=== PATIENT | female | born 1995 | race Two or more races ===

== ENCOUNTER 2024-03-19 16:37 | Outpatient (CLI) | payer OTHER ==
--- NOTE | 2024-03-20 17:02 | Ultrasound Report ---
PROCEDURE: OB Anatomy Scan INDICATIONS: SUPERVISION OF NORMAL OUTSIDE/PRIOR DATING DATA: Last menstrual period (LMP): 10/16/2023. LMP-based estimated date of delivery (PHIL): 07/22/2024. First dating scan (date and location): 12/24/2023, [place]. Estimated date of delivery (PHIL) from first dating scan: 12/24/2023. The below data below was generated using the ultrasound PHIL of 08/01/2024 TECHNIQUE: Real-time scanning was performed of the fetus, with image documentation and biometric measurements. Endovaginal scanning: Not performed. COMPARISON: None. FINDINGS: General: A single living intrauterine gestation is present. Presentation: Vertex Placenta: Placental position is posterior, without previa. Amniotic fluid index: 12.9 cm, within normal limits for gestational age. heart rate: 147 beats per minute. Maternal cervical canal: 4.4 cm long; normal length is 2.5 cm or more. biometrics: Biparietal diameter: 5.09 cm, 21 weeks 3 days, 76.9% Head circumference: 19.27 cm, 21 weeks 4 days, 75.8% Abdominal circumference: 16.4 cm, 21 weeks 3 days, 68.2% Femur length: 3.6 cm, 21 weeks 3 days, 68.6% Estimated gestational age from initial scan: 20 weeks, 5 days Composite gestational age from present scan: 21 weeks, 1 day Estimated weight and percentile: 426.5 g, 84% Measurement variability in biometric dating: +/- 10 days from 12-20 weeks gestation, +/- 2 weeks from 20-30 weeks gestation, +/- 3 weeks at 30 weeks gestation or later. Anatomic survey: Neuro: Ventricles are normal at less than 10 mm. Cisterna magna is normal at 3-11 mm. Cerebellum i s normal in size and morphology. Nuchal skin fold: Normal at less than 6 mm between 14 and 20 weeks gestational age. Face: Nose and lips, facial profile are normal. Spine: No evidence for spina bifida. Heart: The 4 chambered heart and the outflow tracts were poorly characterized. Diaphragm: Diaphragm is intact. Stomach: Left-sided stomach is present. Kidneys: No hydronephrosis. Normal is less than 5 mm in 2nd trimester, less than 7 mm in 3rd trimester. Cord: 3 vessel cord has orthotopic insertion. Bladder: Normal in size. Extremities: All 4 extremities are visualized. IMPRESSION: 1. Single live intrauterine gestation with a composite gestational age of 21 weeks, 1 day which is co ncordant with dates by initial scan. 2. Four-chamber heart and outflow tracts not well characterized. Short interval follow-up recommended . Reviewed by: Tamera Jimenez MD on 03/20/2024 5:00 PM PDT Approved by: Tamera Jimenez MD on 03/20/2024 5:00 PM PDT Station ID: [id number]
== END 2024-03-19 16:38 | disposition home or self-care (01) ==
LOC: DI 16:37
PROVIDERS: ATTEND Nurse Practitioner Obstetrics & Gynecology
DX: Z34.02 Encounter for supervision of normal first pregnancy, second trimester (principal); Z36.89 Encounter for other specified antenatal screening

== ENCOUNTER 2024-04-19 15:18 | Outpatient (CLI) | payer OTHER ==
--- NOTE | 2024-04-19 17:00 | Ultrasound Report ---
PROCEDURE: OB Follow up INDICATIONS: SUPERVISION OF OUTSIDE/PRIOR DATING DATA: Last menstrual period (LMP): 10/16/2023. LMP-based estimated date of delivery (PHIL): 07/22/2024. First dating scan (date and location): 12/24/2023. Estimated date of delivery (PHIL) from first dating scan: 08/01/2024. The below data below was generated using the ultrasound PHIL of 08/01/2024 TECHNIQUE: Real-time scanning was performed of the fetus, with image documentation. Endovaginal scanning: Not performed. COMPARISON: 03/19/2024 FINDINGS: General: A single living intrauterine gestation is present. Presentation: Vertex Placenta: Placental position is posterior, without previa. Amniotic fluid index: 13 cm, within normal limits for gestational age. heart rate: 153 beats per minute. Maternal cervical canal: 4.3 cm long; normal length is 2.5 cm or more. Other: Four-chamber heart view and outflow tracts are normal. IMPRESSION: Single living intrauterine at 25 weeks 1 day, PHIL of 08/01/2024. Normal heart and outflow tracts. Reviewed by: Chacorta Lovelace MD on 04/19/2024 4:59 PM PDT Approved by: Chacorta Lovelace MD on 04/19/2024 4:59 PM PDT Station ID: [id number]
== END 2024-04-19 15:19 | disposition home or self-care (01) ==
LOC: DI 15:18
PROVIDERS: ATTEND Nurse Practitioner Obstetrics & Gynecology
DX: Z34.02 Encounter for supervision of normal first pregnancy, second trimester (principal); Z36.89 Encounter for other specified antenatal screening

== ENCOUNTER 2024-04-20 08:48 | Outpatient (CLI) | payer OTHER ==
[2024-04-20 09:16] LABS: HCT - HEMATOCRIT 37.1 % (37.0-47.0); HGB - HEMOGLOBIN 12.1 g/dL (12.0-16.0); MEAN CORPUSCULAR HEMOGLOBIN 30.8 pg (27.0-31.0); MEAN CORPUSCULAR HGB CONC 32.6 g/dL (32.0-36.0); MEAN CORPUSCULAR VOLUME 94.4 fL (81.0-99.0); MEAN PLATELET VOLUME 8.5 fL (7.9-10.8); RED BLOOD COUNT 3.93 10^6/uL (4.20-5.40); RED CELL DISTRIBUTION WIDTH 12.1 % (12.0-15.0); WHITE BLOOD COUNT 10.2 x10^3/uL (4.8-10.8)
[2024-04-20 09:29] LABS: GTT GLUCOSE,FASTING 82 mg/dL (74-109)
== END 2024-04-20 08:49 | disposition home or self-care (01) ==
LOC: LAB 08:48
PROVIDERS: ATTEND Nurse Practitioner Obstetrics & Gynecology
DX: Z36.9 Encounter for antenatal screening, unspecified (principal)
CPT/HCPCS: 36415; 82951; 85027

== ENCOUNTER 2024-06-01 08:00 | Outpatient (CLI) | payer OTHER ==
[2024-06-01 17:47] LABS: PROTEIN/CREATININE RATIO,URINE 0.1 (<=0.2)
== END 2024-06-01 23:59 | disposition home or self-care (01) ==
LOC: LAB.WC 08:00
PROVIDERS: ATTEND Nurse Practitioner
DX: O16.9 Unspecified maternal hypertension, unspecified trimester (principal)
CPT/HCPCS: 82570; 84156

== ENCOUNTER 2024-06-11 16:07 | Outpatient (CLI) | payer OTHER ==
[2024-06-11 16:12] LABS: HCT - HEMATOCRIT 39.3 % (37.0-47.0); HGB - HEMOGLOBIN 13.2 g/dL (12.0-16.0); MEAN CORPUSCULAR HEMOGLOBIN 31.1 pg (27.0-31.0); MEAN CORPUSCULAR HGB CONC 33.6 g/dL (32.0-36.0); MEAN CORPUSCULAR VOLUME 92.5 fL (81.0-99.0); MEAN PLATELET VOLUME 9.2 fL (7.9-10.8); RED BLOOD COUNT 4.25 10^6/uL (4.20-5.40); WHITE BLOOD COUNT 11.6 x10^3/uL (4.8-10.8)
[2024-06-11 17:11] LABS: ALBUMIN/GLOBULIN RATIO 1.3 (1.0-2.2); BILIRUBIN,TOTAL 0.2 mg/dL (0.2-1.0); CALCIUM 9.7 mg/dL (8.5-10.3); CREATININE 0.6 mg/dL (0.6-1.3); POTASSIUM 3.4 mmol/L (3.5-4.5)
== END 2024-06-11 16:08 | disposition home or self-care (01) ==
LOC: LAB.WC 16:07
PROVIDERS: ATTEND Nurse Practitioner Obstetrics & Gynecology
DX: O09.893 Supervision of other high risk pregnancies, third trimester (principal)
CPT/HCPCS: 36415; 80053; 85027

== ENCOUNTER 2024-07-27 07:58 | Inpatient (IN) ==
[2024-07-27] MEDS ORDERED: lidocaine 1% 20 ML MDV ID PRN (08:45)
[2024-07-27] MEDS ORDERED: TRANEXAMIC ACID IN NACL 1,000 MG/100 ML BAG IV PRN (08:45)
[2024-07-27] MEDS ORDERED: ONDANSETRON 4 MG/2 ML VIAL IVP PRN (08:45)
[2024-07-27] MEDS ORDERED: NIFEdipine 10 MG CAPSULE PO PRN (08:45)
[2024-07-27] MEDS ORDERED: OXYTOCIN 10 UNIT/ML VIAL IM PRN (08:45)
[2024-07-27] MEDS ORDERED: LABETALOL 20 MG/4 ML SYRINGE IVP PRN ×3 (08:45)
[2024-07-27] MEDS ORDERED: CARBOPROST TROMETHAMINE 250 MCG/ML VIAL IM PRN (08:45)
[2024-07-27] MEDS ORDERED: hydrALAZINE INJ 20 MG/ML VIAL IVP PRN ×2 (08:45)
[2024-07-27] MEDS ORDERED: METHYLERGONOVINE 0.2 MG/ML VIAL IM PRN (08:45)
[2024-07-27] MEDS ORDERED: LACTATED RINGERS 1,000 ML IV PRN (08:45)
[2024-07-27] MEDS ORDERED: SODIUM CHLORIDE FLUSH 0.9% 10 ML SYRINGE IVP PRN (08:45)
[2024-07-27] MEDS ORDERED: miSOPROStoL 200 MCG TABLET BC PRN (08:45)
[2024-07-27 09:23] LABS: BASOPHILS % (AUTO) 0.4 %; EOSINOPHILS # (AUTO) 0.1 10^3/uL (0.0-0.7); EOSINOPHILS % (AUTO) 1.1 %; HCT - HEMATOCRIT 39.3 % (37.0-47.0); HGB - HEMOGLOBIN 13.7 g/dL (12.0-16.0); LYMPHOCYTES # (AUTO) 2.8 10^3/uL (1.5-3.5); MEAN CORPUSCULAR HEMOGLOBIN 31.1 pg (27.0-31.0); MEAN CORPUSCULAR HGB CONC 34.9 g/dL (32.0-36.0); MEAN CORPUSCULAR VOLUME 89.1 fL (81.0-99.0); MEAN PLATELET VOLUME 9.6 fL (7.9-10.8); MONOCYTES # (AUTO) 0.7 10^3/uL (0.0-1.0); MONOCYTES % (AUTO) 6.4 %; NEUTROPHILS # (AUTO) 6.6 10^3/uL (1.5-6.6); NEUTROPHILS % (AUTO) 64.5 %; PLT - PLATELET COUNT 250 10^3/uL (130-450); RED BLOOD COUNT 4.41 10^6/uL (4.20-5.40); RED CELL DISTRIBUTION WIDTH 12.2 % (12.0-15.0); WHITE BLOOD COUNT 10.3 x10^3/uL (4.8-10.8)
[2024-07-27 09:34] LABS: ALBUMIN 3.5 g/dL (3.2-5.5); ALBUMIN/GLOBULIN RATIO 1.1 (1.0-2.2); BILIRUBIN,TOTAL 0.3 mg/dL (0.2-1.0); CALCIUM 9.7 mg/dL (8.5-10.3); CREATININE 0.6 mg/dL (0.6-1.3); POTASSIUM 3.8 mmol/L (3.5-4.5); TOTAL PROTEIN 6.8 g/dL (6.4-8.9)
[2024-07-27] MEDS: AMPICILLIN 2 GM in SODIUM CHLORIDE 0.9% MINIBAG 100 ML IV ONE (09:46)
[2024-07-27] MEDS: LACTATED RINGERS 1,000 ML IV PRN (09:47)
[2024-07-27] MEDS: miSOPROStoL 100 MCG TABLET PO SCH (09:47)
--- NOTE | 2024-07-27 10:15 | HISTORY & PHYSICAL EXAMINATION ---
Admit History Visit Reason Visit Reason: Other (Induction of labor) Smoking Status: Never smoker Other Maternal History Other Maternal History: HPI: Carline is a 29 yo at 39w2d who is admitted for induction of labor. complicated by chronic hypertension, A1DM, obesity (starting BMI 31). Carline is feeling well today. Denies contractions, LOF, VB. + FM. She denies TOMLINSON, vision changes, abdominal pain. Mild lower extremity swelling. PE: Gen: NAD Chest: non labored respirations Abd: gravid, non tender. EFW [id number] Ext: trace LE edema SVE: 10/28/2, moderate, anterior Bedside US: cephalic presentation confirmed monitoring: FHTs: 130s bpm baseline, + accel, - decel, mod variability [place]: irregular Labs: CBC, CMP, T&S reviewed A/P: 29 yo at 39w2d who is admitted for IOL: - cHTN, no meds - A1DM - Obesity - GBS + - Will proceed with IOL with PO misoprostol. Discussed repeat SVE this afternoon/evening depending on how she responds to initial doses, sooner PRN. - Pain management per patient request. - Will start ampicillin now. - BG checks q 4 hrs in latent labor, q 1-2 hrs in active labor. - Blood pressures normal to mild range, asymptomatic, preE labs normal on admission, will monitor. Iliana Calderon MD NST Procedure NST Procedure: NST Procedure Start Time 15:38 Stop Time 16:30 Meds/Allgy Home Medications Ambulatory Orders Medication Instructions Recorded Confirmed aspirin 81 mg tablet,delayed 81 mg PO QDAY 07/09/24 07/27/24 release (Adult Aspirin Regimen) blood sugar diagnostic (True 07/09/24 07/27/24 Metrix Glucose Test Strip) lancets 33 gauge 07/09/24 07/27/24 vitamin#30 30 mg iron-10 cap PO DAILY 07/09/24 07/09/24 mg iron-folic acid 1 mg-omg3 capsule Allergies Allergies Allergy/AdvReac Type Severity Reaction Status Date / Time No Known Drug Allergies Allergy Verified 07/27/24 10:11 [facility] Medical History Medical History (Updated 07/09/24 @ 09:27 by Kailyn Hand MA) Carpal tunnel syndrome GERD (gastroesophageal reflux disease) Obesity Social History Social History (Updated 07/09/24 @ 09:28 by Kailyn Hand MA) Smoking Status: Never smoker Do you dip or chew tobacco?: No ETOH Use: None Substance Use: denies use Plan for Labor Plan For Labor I expect patient to be DC'd or transferred within 96 hours.: Yes Conclusion/Plan Lab Results 07/27/24 08:51 07/27/24 08:51
--- NOTE | 2024-07-27 12:28 | PHARMACY PROGRESS NOTE ---
Best Possible Medication History Admit Date and Time: 07/27/24 [id number] Processed by: Pharmacy Medications reviewed in ED?: No Medication History completed: Yes Patient Interview: Completed Secondary Source(s): Insurance records [facility] Statement: As the person ultimately responsible for medication therapy, providers are able to order a medication from an existing home medication list in [facility] via the "Reconcile Routine" prior to Confirmation of that medication by naval surface fire support planner. Such practice is discouraged except when the physician, in their clinical judgment, deems that a medical need exists for a medication without regard to previous use.
[2024-07-27] MEDS: AMPICILLIN 1 GM in SODIUM CHLORIDE 0.9% MINIBAG 100 ML IV SCH (13:45)
[2024-07-27 21:08] LABS: RUPTURE OF MEMBRANES PLUS POSITIVE (NEGATIVE)
[2024-07-27] MEDS: fentaNYL 100 MCG/2 ML VIAL IVP PRN (21:15)
[2024-07-28] MEDS: OXYTOCIN/SODIUM CHLORIDE 500 ML IV SCH (03:38)
[2024-07-28] MEDS ORDERED: ROPIVACAINE 0.2% 200 MG/100 ML BAG EP ONE (05:01)
[2024-07-28] MEDS ORDERED: LIDOCAINE 2%-EPI 1:100000 20 ML MDV ONE (05:02)
[2024-07-28] MEDS ORDERED: ONDANSETRON 4 MG/2 ML VIAL IVP PRN (05:56)
[2024-07-28] MEDS ORDERED: NALOXONE 0.4 MG/ML VIAL IVP PRN ×3 (05:56→17:21)
[2024-07-28] MEDS ORDERED: ePHEDrine 50 MG/ML VIAL IVP PRN (05:56)
[2024-07-28] MEDS ORDERED: METOCLOPRAMIDE 10 MG/2 ML VIAL IVP PRN (05:56)
[2024-07-28] MEDS ORDERED: NALBUPHINE 10 MG/ML AMP IVP PRN (05:56)
[2024-07-28] MEDS ORDERED: diphenhydrAMINE INJ 50 MG/ML VIAL IVP PRN (05:56)
--- NOTE | 2024-07-28 05:59 | ANESTHESIA PROCEDURE NOTE ---
Pre-Anesthesia VS, & Labs Diagnosis Surgical Diagnosis:: Labor pain Procedure Procedure: epidural for Vitals Vital Signs: Temp Pulse Resp BP Pulse Ox 36.0 C L 73 18 142/81 H 99 07/27/24 17:39 07/27/24 17:39 07/27/24 17:39 07/27/24 18:04 07/27/24 17:39 NPO Last Fluid Intake: t/o noc Last Food Intake: dinner 07/27 Is Patient ?: Yes Lab Results Current Lab Results: Laboratory Tests 07/28/24 01:43: POC Whole Bld Glucose 73 07/27/24 21:51: POC Whole Bld Glucose 74 07/27/24 17:43: POC Whole Bld Glucose 74 07/27/24 14:05: POC Whole Bld Glucose 150 07/27/24 09:40: POC Whole Bld Glucose 70, Blood Type Recheck O POSITIVE 07/27/24 08:51: WBC 10.3, RBC 4.41, Hgb 13.7, Hct 39.3, MCV 89.1, MCH 31.1 H, MCHC 34.9, RDW 12.2, Plt Count 250, MPV 9.6, Neut # (Auto) 6.6, Lymph # (Auto) 2.8, Day # (Auto) 0.7, Eos # (Auto) 0.1, Baso # (Auto) 0.0, Absolute Nucleated RBC 0.00, Nucleated RBC % 0.0, Sodium 135, Potassium 3.8, Chloride 106, Carbon Dioxide 21, Anion Gap 8.0, BUN 9, Creatinine 0.6, Estimated GFR (MDRD) 117, Glucose 75, Calcium 9.7, Total Bilirubin 0.3, AST 15, ALT 7 L, Alkaline Phosphatase 195 H, Total Protein 6.8, Albumin 3.5, Globulin 3.3, Albumin/Globulin Ratio 1.1, Blood Type O POSITIVE, Antibody Screen NEGATIVE Lab results reviewed: Yes 07/27/24 08:51 07/27/24 08:51 Meds/Allgy Home Medications Ambulatory Orders Medication Instructions Recorded Confirmed aspirin 81 mg tablet,delayed 81 mg PO QDAY 07/09/24 07/27/24 release (Adult Aspirin Regimen) blood sugar diagnostic (True 07/09/24 07/27/24 Metrix Glucose Test Strip) lancets 33 gauge 07/09/24 07/27/24 vitamin#30 30 mg iron-10 1 cap PO DAILY 07/09/24 07/27/24 mg iron-folic acid 1 mg-omg3 capsule famotidine 20 mg tablet 20 mg PO DAILY PRN heartburn 07/27/24 07/27/24 Allergies Allergies Allergy/AdvReac Type Severity Reaction Status Date / Time No Known Drug Allergies Allergy Verified 07/27/24 10:11 [facility] Medical History Medical History (Updated 07/27/24 @ 10:29 by Iliana Calderon MD) Obesity Carpal tunnel syndrome GERD (gastroesophageal reflux disease) Social History Social History (Updated 07/09/24 @ 09:28 by Kailyn Hand MA) Smoking Status: Never smoker Do you dip or chew tobacco?: No ETOH Use: None Substance Use: denies use Anesthesia Exam (Expanded) Exam General: Alert, Oriented x3 and Cooperative Dental: WNL Mouth Openin Fingerbreadth Neck Mobility: Normal Mallampati classification: II Thyromental Distance: 4-6 cm Respiratory: No respiratory distress Cardiovascular: Regular rate Neurological: Normal speech Mental/Cognitive Status: Alert/Oriented X3 and Normal for patient Cognitive Status: Within normal limits Plan Plan Anesthesia Type: Epidural Consent for Procedure(s) Verified and Reviewed: Yes Code Status: Attempt Resuscitation ASA Classification ASA classification: 2-Mild systemic disease Is this case an emergency?: No
[2024-07-28] MEDS: LACTATED RINGERS 500 ML IV ONE (07:00)
--- NOTE | 2024-07-28 09:24 | PROVIDER PROGRESS NOTE ---
Labor Progress Note Uterine Monitoring Uterine Monitoring Mode: positive External toco Contraction Frequency (min/apart): 2-4 Contraction Intensity: positive Moderate Monitoring Monitor Mode: positive External ultrasound Heart Rate Baseline: 140 Heart Rate Variability: positive Moderate (6-25 bmp) Accelerations: positive Present, 15x15 Decelerations: positive None Strip Review: positive Category I Vaginal Exam Dilation (in cm): 3 Effacement (%): 100 Station: -3 Cervical Position: Midposition Labor Progress Note Labor Progress Note/Additional Text: 29yo at 39w admitted for IOL for CHTN and GDMA1 - Received misoprostol - Comfortable with epidural - SROM 2100 07/17/24 - GBS positive, treating with ampicillin - BP and BG controlled, no meds - Anticipate today
[2024-07-28] MEDS ORDERED: fentaNYL 100 MCG/2 ML VIAL ONE ×2 (11:24→14:46)
[2024-07-28] MEDS ORDERED: LIDOCAINE-PF 2% 10 ML AMP SUBQ ONE (11:24)
[2024-07-28] MEDS ORDERED: SODIUM CHLORIDE 0.9% 10 ML VIAL IVP ONE (11:24)
[2024-07-28] MEDS: ROPIVACAINE 0.2% 200 MG/100 ML BAG EP PRN (11:58)
--- NOTE | 2024-07-28 14:38 | PROVIDER PROGRESS NOTE ---
Labor Progress Note Uterine Monitoring Uterine Monitoring Mode: positive IUPC Contraction Frequency (min/apart): 2 Contraction Intensity: positive Moderate to strong Uterine Resting Tone: positive Soft Other Uterine Monitoring: MVU at least 240 Monitoring Monitor Mode: positive External ultrasound Heart Rate Baseline: 140 Heart Rate Variability: positive Moderate (6-25 bmp) Accelerations: positive Present, 15x15 Decelerations: positive Early and Variable Strip Review: positive Category II Vaginal Exam Dilation (in cm): 3 Effacement (%): 100 Station: -3 Cervical Position: Midposition Labor Progress Note Labor Progress Note/Additional Text: 29yo at 39w admitted for IOL for CHTN and GDMA1. Induced with misoprostol. SROM last night 2100, almost 18h rupture now. IUPC placed to monitor strength of contractions. Pitocin 16mu with contractions every 2m and adequate MVUs. Minimal progress since this morning exam of 3cm. Informed consent obtained with PCD for failure to progress. Uncomfortable with epidural, plan for spinal per anesthesia. Ancef and azithromycin ordered.
[2024-07-28] MEDS ORDERED: miSOPROStoL 200 MCG TABLET ONE (14:40)
[2024-07-28] MEDS ORDERED: CARBOPROST TROMETHAMINE 250 MCG/ML VIAL IM ONE (14:40)
[2024-07-28] MEDS ORDERED: METHYLERGONOVINE 0.2 MG/ML VIAL ONE (14:40)
[2024-07-28] MEDS ORDERED: PHENYLEPHRINE 10 MG/ML VIAL ONE (14:41)
[2024-07-28] MEDS ORDERED: MORPHINE PF 5 MG/10 ML VIAL ONE (14:47)
[2024-07-28] MEDS ORDERED: MORPHINE PF 5 MG/10 ML VIAL IT ONE (15:16)
[2024-07-28] MEDS ORDERED: fentaNYL 100 MCG/2 ML VIAL IT ONE (15:16)
[2024-07-28] MEDS: ceFAZolin (2G) 2 GM in SODIUM CHLORIDE 0.9% MINIBAG 100 ML IV ONE (15:30)
[2024-07-28] MEDS: AZITHROMYCIN INJ 500 MG in SODIUM CHLORIDE 0.9% 250 ML IV ONE (15:30)
[2024-07-28] MEDS ORDERED: ONDANSETRON 4 MG/2 ML VIAL ONE (15:44)
[2024-07-28] MEDS ORDERED: KETOROLAC 30 MG/ML VIAL ONE ×2 (16:04→16:05)
[2024-07-28] MEDS: OXYTOCIN/SODIUM CHLORIDE 500 ML IV PRN (16:20)
[2024-07-28] MEDS ORDERED: OXYTOCIN/SODIUM CHLORIDE 500 ML IV PRN (16:29)
[2024-07-28] MEDS ORDERED: VARICELLA VACCINE LIVE/PF 1,350 UNIT/0.5 ML VIAL SUBQ ONE (16:35)
[2024-07-28] MEDS ORDERED: MEASLES,MUMPS & RUBELLA VACC 0.5 ML VIAL SUBQ ONE (16:35)
--- NOTE | 2024-07-28 16:42 | DELIVERY NOTE ---
Delivery Note Labor Labor: positive Augmented by oxytocin Infant Delivery Method Infant Delivery Method: positive Primary Cervical Ripening Method Cervical Ripening Method: positive Misoprostil Presentation Presentation: positive Vertex and JIMENEZ - left occiput anterior Nuchal Cord Nuchal Cord: positive Present (x2, reduced after delivery) Amniotic Fluid Description Amniotic Fluid Description: positive Clear Delivery Outcome Delivery Outcome: positive Livebirth [place] : positive Suctioned, Bulb syringe, Stimulated, Warmed, [place] used and Warmer used [place] sex: positive Male Cord Cord: positive 3 vessels Placenta Placenta: positive Expressed Estimated Blood Loss Estimated Blood Loss (in cc): 600 Post Delivery Events Post Delivery Events: positive No post delivery events Delivery Comments (Free Text/Narrative) Delivery Comments (Free Text/Narrative): See operative note for uncomplicated PCD.
--- NOTE | 2024-07-28 16:51 | OPERATIVE REPORT ---
Operative Report General Admit Date: 07/28/24 Procedure Data: Operation Date: 07/28/24 14:45 Proposed Procedures p Section(Not Applicable) - Kailyn Melissa DO Vidya Actual Procedures p Section(Not Applicable) - Kailyn Melissa DO Vidya Pre-Op Diagnosis: FAILURE TO PROGRESS Anesthesia Type Spinal Case Staff Anesthesia Provider: Nena Bazan Assisting Provider: Shelley Mistry Case Times Into Recovery: 07/28/24 16:20 Procedure Start: 07/28/24 15:28 Procedure End: 07/28/24 16:13 Time out: 07/28/24 15:27 Tourniquet Tourniquet #: Tourniquet Site Padding: Pressure: Applied by: Time up #1: Time Down #1: Time Up #2: Time Down #2: Pre-Op Diagnosis: 29yo with IUP 39w, chronic hypertension, GDMA1 Post Op Diagnosis: 29yo with IUP 39w, chronic hypertension, GDMA1 Procedure Note Estimated Blood Loss (ml): 600 Pathology: None Findings: Normal appearing uterus, tubes, ovaries Viable male Nuchal cord x2 Complications: None Other Other Information/Narrative: Under spinal anaesthetic with a ram catheter inserted, the patient was prepped and draped in the usual sterile fashion in the supine position with a leftward tilt. A Pfannensteil incision was made. The incision was carried down to the fascia with sharp dissection and cautery. The fascia was incised transversely and dissected off the rectus muscle using blunt and sharp dissection. Electrocautery was used for hemostasis. The peritoneum was opened taking care not to injure the bladder. The vesicouterine peritoneum was dissected off the lower uterine segment. The lower segment was assessed and a low transverse incision was made. The uterine incision was extended bluntly. The fetus was presenting as a vertex. The head was delivered without difficulty and the rest of the body followed easily. After one minute of delayed cord clamping, the cord was clamped twice and cut and the baby transferred to the warmer, awaiting the pediatric staff. Cord blood obtained. The placenta was then delivered spontaneously. The uterus was explored and was empty of all tissue. The uterus was exteriorized for better visualization. The uterine incision was then closed in two layers with 0- Monocryl. The first layer was locking and the second was imbricating. Tubes and ovaries were examined and appeared normal. The fascia was closed with 0-Vicryl in a running unlocked fashion. Subcutaneous layer reapproximated with 3-0 Chromic. Skin closed with 3-0 Monocryl. At the end of the procedure all sponges, instruments, and sharps were counted and correct. Estimated blood loss was 600cc. The patient and baby were taken to the recovery in stable condition. Apgars were 8 and 9 at 1 and 5 minutes. Surgical assistance required for retraction and safe completion of procedures and delivery.
[2024-07-28] MEDS: NIFEdipine ER 30 MG TABLET PO SCH (18:06)
[2024-07-28] MEDS: ACETAMINOPHEN 500 MG TABLET PO SCH (18:09)
--- NOTE | 2024-07-28 18:47 | ANESTHESIA POST OP EVALUATION ---
Anesthesia Post Eval Post Anesthesia Eval Vitals: Last Vital Signs Temp 37.7 C 07/28/24 17:05 Pulse 68 07/28/24 17:45 Resp 16 07/28/24 17:45 BP 149/87 H 07/28/24 17:45 Pulse Ox 98 07/28/24 17:05 CV Function Including HR & BP: Stable Pain Control: Satisfactory Nausea & Vomiting: Negative Mental Status: Baseline Respiratory Status: Airway Patent Hydration Status: Satisfactory Anesthesia Complications: None
[2024-07-28] MEDS: NALBUPHINE 10 MG/ML AMP IVP PRN (19:54)
--- NOTE | 2024-07-28 20:05 | ANESTHESIA PROCEDURE NOTE ---
Anesthesia Epidural Template Patient Report Patient Reports: positive Inadequate control Other Comments Other Comments: patient reporting inadequate pain control, especially on the left side. Evaluation of dermatome level indicated T10 on right side and no level on left. Epidural bolused with 5ml 2% lidocaine, 100mcg fentanyl and 8ml of PF NS. Afterwards, patient reports pain controlled, 0/10. If discomfort returns, recommend replacing epidural.
[2024-07-28] MEDS: DOCUSATE SODIUM 100 MG CAPSULE PO SCH (22:08)
[2024-07-28] MEDS: KETOROLAC 30 MG/ML VIAL IVP SCH (22:09)
[2024-07-29 06:15] LABS: HCT - HEMATOCRIT 34.2 % (37.0-47.0); HGB - HEMOGLOBIN 11.5 g/dL (12.0-16.0); MEAN CORPUSCULAR HEMOGLOBIN 30.8 pg (27.0-31.0); MEAN CORPUSCULAR HGB CONC 33.6 g/dL (32.0-36.0); MEAN CORPUSCULAR VOLUME 91.7 fL (81.0-99.0); MEAN PLATELET VOLUME 9.4 fL (7.9-10.8); RED BLOOD COUNT 3.73 10^6/uL (4.20-5.40); RED CELL DISTRIBUTION WIDTH 12.3 % (12.0-15.0); WHITE BLOOD COUNT 12.6 x10^3/uL (4.8-10.8)
[2024-07-29 06:41] LABS: ALBUMIN/GLOBULIN RATIO 1.1 (1.0-2.2); BILIRUBIN,TOTAL 0.3 mg/dL (0.2-1.0); CALCIUM 8.8 mg/dL (8.5-10.3); CREATININE 0.6 mg/dL (0.6-1.3); POTASSIUM 3.8 mmol/L (3.5-4.5); TOTAL PROTEIN 5.7 g/dL (6.4-8.9)
[2024-07-29] MEDS: oxyCODONE 5 MG TABLET PO PRN (08:23)
--- NOTE | 2024-07-29 12:05 | PROVIDER PROGRESS NOTE ---
Subjective Prog Note Date Prog Note Date: 07/29/24 Prog Note Time: 12:00 Subjective Pt reports feeling: Improved Subjective: Comfortable, post operative pain controlled. Appropriate lochia. Ambulating. Voiding. Tolerating regular diet. well. Mood is good. Denies headache, visual changes. Current Medications Current Medications Current Medications: Current Medications Generic Name Dose Route Start Last Admin Trade Name Freq PRN Reason Stop Dose Admin Acetaminophen 1,000 mg 07/28/24 17:00 07/29/24 11:01 Acetaminophen 500 Mg Tablet PO 1,000 mg Q8H SELMA Administration Carboprost Tromethamine 250 mcg 07/27/24 08:45 Carboprost Tromethamine 250 Mcg/Ml Vial IM 08/01/24 08:45 Q15M PRN Step 4: Hemorrhage protocol Docusate Sodium 200 mg 07/28/24 21:00 07/29/24 11:00 Docusate Sodium 100 Mg Capsule PO 200 mg BID SELMA Administration Hydralazine HCl 5 - 20 mg 07/27/24 08:45 Hydralazine Inj 20 Mg/Ml Vial IVP Q20M PRN SBP >160 or DBP >110 Protocol Hydralazine HCl 10 mg 07/27/24 08:45 Hydralazine Inj 20 Mg/Ml Vial IVP 08/01/24 08:45 .ONCE PRN Step 9 of Labetalol protocol Protocol Oxytocin/Sodium Chloride 500 mls @ 999 mls/hr 07/27/24 08:45 07/28/24 16:20 Pitocin/Sodium Chloride IV 08/01/24 08:47 50 milliunit/min PRN PRN 50 mls/hr POST- HEMORR PREVENTION Administration Protocol 999 MILLIUNIT/MIN Ibuprofen 600 mg 07/29/24 17:00 Ibuprofen 600 Mg Tablet PO Q6HR SELMA Labetalol HCl 20 - 80 mg 07/27/24 08:45 Labetalol 20 Mg/4 Ml Syringe IVP Q10M PRN SBP >160 or DBP >110 Protocol Labetalol HCl 20 mg 07/27/24 08:45 Labetalol 20 Mg/4 Ml Syringe IVP 08/01/24 08:45 .ONCE PRN Step 9 of nifedipine protocol Protocol Labetalol HCl 40 mg 07/27/24 08:45 Labetalol 20 Mg/4 Ml Syringe IVP 08/01/24 08:45 .ONCE PRN Step 9 of hydrALAZine protocol Protocol Nalbuphine HCl 5 mg 07/28/24 17:21 07/29/24 02:20 Nalbuphine 10 Mg/Ml Amp IVP 5 mg Q4H PRN Administration ITCHING Naloxone HCl 0.4 mg 07/28/24 16:29 Naloxone 0.4 Mg/Ml Vial IVP .ONCE PRN Opioid overdose Naloxone HCl 0.1 mg 07/28/24 17:21 Naloxone 0.4 Mg/Ml Vial IVP 07/29/24 17:21 Q2M PRN RR < 8 Nifedipine 10 - 20 mg 07/27/24 08:45 Nifedipine 10 Mg Capsule PO Q20M PRN SBP >160 or DBP >110 Protocol Nifedipine 30 mg 07/28/24 18:00 07/28/24 18:06 Nifedipine Er 30 Mg Tablet PO 30 mg DAILY SELMA Administration Ondansetron HCl 4 mg 07/27/24 08:45 Ondansetron 4 Mg/2 Ml Vial IVP Q4HR PRN Nausea / Vomiting Oxycodone HCl 5 mg 07/28/24 16:29 07/29/24 08:23 Oxycodone 5 Mg Tablet PO 5 mg Q6H PRN Administration Severe Pain 6 -10 Sodium Chloride 10 ml 07/27/24 08:45 Sodium Chloride Flush 0.9% 10 Ml Syringe IVP PRN PRN NEEDED PER PROVIDER ORDERS Objective Vital Signs/Intake & Output Reviewed Vital Signs: Yes Vital Signs: Vital Signs x48h Temp Pulse Resp BP Pulse Ox 07/29/24 08:48 85 16 124/68 07/29/24 08:45 85 18 148/72 H 07/29/24 07:39 36.8 C 74 14 127/67 100 07/29/24 04:46 36.8 C 75 18 124/65 99 Intake & Output: Intake & Output 07/27/24 07/28/24 07/29/24 07/30/24 05:59 05:59 05:59 05:59 Intake Total 1000 / 1000 3764 / 3764 Output Total 3875 / 3875 1900 / 1900 Balance 1000 / 1000 -111 / -111 -1900 / -1900 Weight (kg) 80.286 kg Objective General Appearance: positive No acute distress Eyes Bilateral: positive EOMI Respiratory: positive No respiratory distress Abdomen: positive Other (Dressing c/d/i) Back: positive Nml inspection Skin: positive Color nml Extremities: positive Non-tender Neurologic/Psychiatric: positive Oriented x3 Lab Results 07/29/24 06:13 07/29/24 06:13 Other Labs: Lab Results x24hrs 07/29/24 07/28/24 07/28/24 Range/Units 06:13 14:59 14:21 WBC 12.6 H (4.8-10.8) x10^3/uL RBC 3.73 L (4.20-5.40) 10^6/uL Hgb 11.5 L (12.0-16.0) g/dL Hct 34.2 L (37.0-47.0) % MCV 91.7 (81.0-99.0) fL MCH 30.8 (27.0-31.0) pg MCHC 33.6 (32.0-36.0) g/dL RDW 12.3 (12.0-15.0) % Plt Count 214 (130-450) 10^3/uL MPV 9.4 (7.9-10.8) fL Sodium 138 (135-145) mmol/L Potassium 3.8 (3.5-4.5) mmol/L Chloride 109 (101-111) mmol/L Carbon Dioxide 23 (21-32) mmol/L Anion Gap 6.0 (6-13) BUN 5 L (6-20) mg/dL Creatinine 0.6 (0.6-1.3) mg/dL Estimated GFR (MDRD) 117 (>89) Glucose 108 H (74-104) mg/dL POC Whole Bld Glucose 94 63 (70-100) mg/dL Calcium 8.8 (8.5-10.3) mg/dL Total Bilirubin 0.3 (0.2-1.0) mg/dL AST 19 (10-42) IU/L ALT 7 L (10-60) IU/L Alkaline Phosphatase 174 H (42-121) IU/L Total Protein 5.7 L (6.4-8.9) g/dL Albumin 3.0 L (3.2-5.5) g/dL Globulin 2.7 (2.1-4.2) g/dL Albumin/Globulin Ratio 1.1 (1.0-2.2) Assessment/Plan Problem List (1) care following delivery: Impression: 29yo s/p PCD for failure to progress/Cat 2 tracing at 39w following IOL for CHTN and GDMA1, POD#1 - Started on nifedipine 30mg XR last night, BP normal now, no symptoms - Continue , postoperative care. Evaluate for discharge tomorrow
[2024-07-29] MEDS: IBUPROFEN 600 MG TABLET PO SCH (14:17)
[2024-07-29] MEDS ORDERED: IBUPROFEN 600 MG TABLET PO SCH (17:00)
[2024-07-30 12:13] VITALS: O2SAT 100
--- NOTE | 2024-07-30 13:14 | Discharge Summary ---
Discharge Summary Admit Date: 07/27/24 Discharge Date: 07/30/24 Discharging Provider: Iliana Calderon MD HPI History of Present Illness: Admission Diagnosis: - [facility] at 39w2d - chronic (preexisting hypertension), no meds - Diet controlled gestational diabetes - GBS + - Rh + - Rubella immune - Varicella immune Discharge Diagnosis: - Same, delivered Procedures: primary delivery Hospital Course: Carline is a 29 yo who presented at 39w2d for IOL in the setting of cHTN and A1DM. She underwent IOL with misoprostol, followed by SROM and pitocin augmentation. She underwent a primary delivery for failure to progress past 3cm, EBL 600cc. , she was started on nifedipine 30mg daily. course otherwise uncomplicated. Condition on Discharge: SUBJECTIVE: day #2 She feels well. Pain is well controlled with current medications. The baby is doing well. Baby is feeding via breast feeding. She is ambulating well, tolerating normal diet, urinating without difficulty. Flatus has been passed and she has had BM. Lochia is reported as light. OBJECTIVE: Vital signs reviewed GENERAL: NAD CHEST: non labored respirations ABD: soft, non tender, fundus firm INCISION: Dressing removed, incision intact, without erythema or drainage EXT: trace lower extremity edema; No evidence of DVT LAB & IMAGING STUDIES: See below PLAN: Plan for discharge home with follow up in clinic on 08/03 for incision and BP check. Reviewed home care instructions and medications. Patient counseled regarding signs and symptoms of infection, excessive bleeding, vaginal rest and activity restrictions. Preeclampsia precautions were reviewed and we discussed continuation of BP checks at home. Contraceptive plans to be formalized at visit. Discussed that additional support is available in our clinic if needed . ALLERGIES Allergies Allergy/AdvReac Type Severity Reaction Status Date / Time No Known Drug Allergies Allergy Verified 07/27/24 10:11 MEDICATIONS Ambulatory Orders Medication Instructions Recorded Confirmed vitamin#30 30 mg iron-10 1 cap PO DAILY 07/09/24 07/27/24 mg iron-folic acid 1 mg-omg3 capsule famotidine 20 mg tablet 20 mg PO DAILY PRN heartburn 07/27/24 07/27/24 acetaminophen 325 mg capsule 650 mg (2 x 325 mg) PO Q4H PRN 07/30/24 (Tylenol) fever or pain #30 caps ibuprofen 600 mg tablet 600 mg PO Q6H #30 tabs 07/30/24 nifedipine 30 mg tablet,extended 30 mg PO DAILY #14 tabs 07/30/24 release 24 hr oxycodone 5 mg capsule 5 mg PO Q6H PRN pain #15 caps 07/30/24 sennosides 8.6 mg-docusate sodium 1 tab-cap PO DAILY PRN 07/30/24 50 mg tablet (Laxative Stool constipation #30 tabs Softener With Senna) LABS 07/29/24 06:13 07/29/24 06:13 TIME SPENT Time Spent in Discharge (Minutes): 25 Discharge Plan Discharge Patient Disposition: Home, Self Care Prescriptions: New nifedipine 30 mg Tablet Extended Release 24hr 30 mg PO DAILY Qty: 14 0RF ibuprofen 600 mg Tablet 600 mg PO Q6H Qty: 30 0RF sennosides-docusate sodium [Lax Stool Softener With Senna] 8.6-50 mg tablet 1 tab-cap PO DAILY PRN (Reason: constipation) Qty: 30 0RF acetaminophen [Tylenol] 325 mg capsule 650 mg PO Q4H PRN (Reason: fever or pain) Qty: 30 0RF oxycodone 5 mg capsule 5 mg PO Q6H PRN (Reason: pain) Qty: 15 0RF Continued famotidine 20 mg tablet 20 mg PO DAILY PRN (Reason: heartburn) Patient Comments: Take 1 tablet by mouth once a day for heart burn/ acid reflux PNV #[id number] 30 mg iron-10 mg iron-1 mg capsule 1 cap PO DAILY Discontinued (DME) True Metrix Glucose Test Strip Strip See Rx Instructions .ROUTE Rx Instructions: As directed aspirin [Adult Aspirin Regimen] 81 mg tablet,delayed release (DR/EC) 81 mg PO QDAY (DME) lancets 33 gauge misc See Rx Instructions .ROUTE Rx Instructions: As directed Print Language: Serbian Patient Instructions: Childbirth Breast Care, , Depression , Change Expect Parents
--- NOTE | 2024-07-30 14:41 | Labor Flowsheet ---
Labor Flowsheet Datetime Report Generated by CPN: 07/30/2024 14:41 Datetime: 07/28/2024 15:01 VITAL SIGNS NBP Sys/Makenzie/Mean (mmHg): 141 : 65 : 84 Pulse: 87 LaborFlag: Labor Datetime: 07/28/2024 15:00 UTERINE ACTIVITY Monitor Mode: Internal Frequency (min): 3-4 Duration (sec): 60-100 Pattern: Normal: <= 5 Contractions in 10 Minutes ASSESSMENT A Monitor Mode: External US FHR Baseline Rate : 140 Variability: Moderate 6-25 bpm Accelerations: 15X15 Decelerations: None Category: Category I Datetime: 07/28/2024 14:45 [place] Units (mmHg): 135 Datetime: 07/28/2024 14:38 Anesthesia Comments: [employer]END[employer] Beni left bedside Datetime: 07/28/2024 14:30 Quality: Strong Resting Tone (Palpate): Relaxed Resting Tone IUP (mmHg): 25-45 Intensity IUP (mmHg): 50-80 Pitocin Checklist: No More than 1 Late Deceleration Occurred in Past 30 Minutes; No More than 2 Megha iable Decelerations > 60 Seconds in Duration and decreasing >60 bpm in 30 minutes; No More than 5 [place] Contractions in 10 Minutes for any 20 Minute Interval; Uterus Palpates Soft between Contractions Contraction Comments: RN at bedside to palpate between ctxs Datetime: 07/28/2024 14:25 MEDICATIONS Pitocin (milliunits): Discontinued Datetime: 07/28/2024 14:21 Comments: EFM adjusted Datetime: 07/28/2024 14:07 Patient Care Comments: sitting up with birthing bar Datetime: 07/28/2024 14:01 Respirations: 16 Temperature (C): 37.0 Temperature Route: Oral Datetime: 07/28/2024 13:57 VAGINAL EXAM Dilatation (cm): 3.0 Effacement (%): 100 Station: -2 Exam by: Dr. Cayabyab Datetime: 07/28/2024 13:53 Communication Comments: Dr. Cayabyab at bedside Datetime: 07/28/2024 13:30 [place] UNITS (Computed) IUPC Average Resting Tone: 20 Datetime: 07/28/2024 13:18 Patient Position/Activity: Left Lateral Datetime: 07/28/2024 13:00 PAIN Pain Scale: 6 Pain Presence: Intermittent Pain Type: Cramping Pain Location: Abdomen Pain Coping: Breathing Through Contractions Datetime: 07/28/2024 12:24 PATIENT CARE IV/Blood Work: IV Bolus Started Datetime: 07/28/2024 11:40 Anesthesia Level Check: T12 Datetime: 07/28/2024 11:04 Pain Assessment Comments: Pt c/o left side ctx pain. Left side lower than T12. Rt side T8. Datetime: 07/28/2024 10:12 Monitor Interventions for UA: [place] Adjusted Datetime: 07/28/2024 09:51 FHR Baseline Changes: Return to Previous Baseline Datetime: 07/28/2024 07:31 SpO2 (%): 100 Datetime: 07/28/2024 07:15 MATERNAL ASSESSMENT Level of Consciousness: Alert DTR's/Clonus: DTRs 2+; No Clonus Headache: Denies Breath Sounds, Left: Clear and Equal Breath Sounds, Right: Clear and Equal Datetime: 07/28/2024 07:00 Stage of : Labor Oxygen Method: Room Air Datetime: 07/28/2024 06:45 Bedside Blood Glucose: 86 Datetime: 07/28/2024 05:35 ANESTHESIA Anesthesia Plans: Epidural Epidural Positioning: Sitting Epidural Procedure: Test Dose Datetime: 07/28/2024 05:29 PROCEDURE TIME OUT Procedure Verify: Correct Patient Identity; Correct Side and Site are Marked; Accurate Procedure Co nsent Form; Agreement on Procedure to be Done; Correct Patient Position Datetime: 07/28/2024 02:21 Monitor Interventions for FHR: Ultrasound Adjusted Datetime: 07/28/2024 01:43 Antibiotics: Ampicillin IV 1 Gm Datetime: 07/28/2024 00:57 Analgesics/Sedatives: Fentanyl (mcg) @ 50 Datetime: 07/27/2024 19:57 Membrane Status: Ruptured Membranes Rupture Method: Spontaneous Amniotic Fluid Color: Clear Amniotic Fluid Amount: Large Amniotic Fluid Odor: Normal Vaginal Bleeding: None Membrane Comments: Dr. Calderon notified Datetime: 07/27/2024 18:09 Cervical Ripening Agents: Cytotec @ Datetime: 07/27/2024 18:07 Strip Reviewed by: Dr Yumiko Datetime: 07/27/2024 17:21 COMMUNICATION Provider Notified (Name): Dr Yumiko Datetime: 07/27/2024 14:43 Nausea/Vomiting: Denies RUQ Epigastric Pain: Denies Datetime: 07/27/2024 14:25 I/O Interventions: Up to BR Datetime: 07/27/2024 13:14 Membranes Ruptured Date/Time: 07/27/2024 19:57 Datetime: 07/27/2024 09:04 Cervix, Consistency: Firm Cervix, Position: Anterior
== END 2024-07-30 14:40 | disposition home or self-care (01) | DRG 788 ==
LOC: WFO 07:58 → FBP 07:58
PROVIDERS: ADMIT Obstetrics & Gynecology; ATTEND Obstetrics & Gynecology
DX: O76 Abnormality in fetal heart rate and rhythm complicating labor and delivery; O99.824 Streptococcus B carrier state complicating childbirth; Z37.0 Single live birth; O24.420 Gestational diabetes mellitus in childbirth, diet controlled; O62.0 Primary inadequate contractions; Z23 Encounter for immunization; Z3A.39 39 weeks gestation of pregnancy; O99.214 Obesity complicating childbirth; O10.92 Unspecified pre-existing hypertension complicating childbirth